=== PATIENT | female | born 1995 | race Caucasian/White ===

== ENCOUNTER 2017-10-23 16:12 | Outpatient (CLI) | payer OTHER, MEDICAID ==
[2017-10-23 19:32] LABS: ADD UMIC YES; UR ASCORBIC ACID NEGATIVE (NEGATIVE); UR BILIRUBIN (Dip) NEGATIVE (NEGATIVE); UR BLOOD (Dip) 2+ mg/dL (NEGATIVE); UR CLARITY SLIGHTLY CLOUDY (CLEAR); UR COLOR YELLOW (YELLOW); UR GLUCOSE (Dip) NEGATIVE (NEGATIVE); UR KETONES (Dip) NEGATIVE (NEGATIVE); UR LEUKOCYTE ESTERASE (Dip) NEGATIVE Leu/ul (NEGATIVE); UR MUCUS FEW /HPF (NONE SEEN); UR NITRITE (Dip) NEGATIVE (NEGATIVE); UR RBC 3 /HPF (0-5); UR SQUAMOUS EPITHELIAL CELL FEW /HPF (FEW); UR TOTAL PROTEIN (Dip) NEGATIVE (NEGATIVE); UR UROBILINOGEN (Dip) 1+ mg/dL (NEGATIVE); UR WBC 3 /HPF (0-5)
== END 2017-10-23 21:43 | disposition home or self-care (01) ==
LOC: OBT 16:12 → L-D 16:14
DX: O46.92 Antepartum hemorrhage, unspecified, second trimester (principal); Z3A.24 24 weeks gestation of pregnancy
CPT/HCPCS: 76817; 81001; 86900; 86901; 87086

== ENCOUNTER 2017-12-27 11:39 | Outpatient (CLI) | payer OTHER ==
[2017-12-27 12:57] LABS: ADD UMIC NO; UR ASCORBIC ACID 20 mg/dL (NEGATIVE); UR BILIRUBIN (Dip) NEGATIVE (NEGATIVE); UR BLOOD (Dip) NEGATIVE (NEGATIVE); UR CLARITY CLEAR (CLEAR); UR COLOR YELLOW (YELLOW); UR GLUCOSE (Dip) NEGATIVE (NEGATIVE); UR KETONES (Dip) NEGATIVE (NEGATIVE); UR LEUKOCYTE ESTERASE (Dip) NEGATIVE Leu/ul (NEGATIVE); UR NITRITE (Dip) NEGATIVE (NEGATIVE); UR SPECIFIC GRAVITY (Dip) 1.019 (1.003-1.030); UR TOTAL PROTEIN (Dip) NEGATIVE (NEGATIVE); UR UROBILINOGEN (Dip) NEGATIVE (NEGATIVE)
[2017-12-27 13:33] LABS: ADD MAN DIFF? NO
[2017-12-27 13:35] LABS: ABNORMAL IP MESSAGE 1; BASOPHIL # 0.1 10^3/ul (0.0-0.1); BASOPHILS % 0.5 % (0.0-2.0); EOSINOPHILS # 0.4 10^3/ul (0.0-0.5); EOSINOPHILS % 3.7 % (0.0-7.0); HEMATOCRIT 36.3 % (37.0-47.0); LYMPHOCYTES # 2.6 10^3/ul (0.8-2.9); LYMPHOCYTES % 23.9 % (15.0-51.0); MEAN CORPUSCULAR HEMOGLOBIN 27.5 pg (29.0-33.0); MEAN CORPUSCULAR HGB CONC 33.1 g/dl (32.0-37.0); MEAN CORPUSCULAR VOLUME 83.3 fl (82.0-101.0); MONOCYTE # 0.6 10^3/ul (0.3-0.9); MONOCYTES % 5.6 % (0.0-11.0); NEUTROPHILS % 65.6 % (39.0-77.0); PLATELET COUNT 115 10^3/UL (140-415); RED BLOOD COUNT 4.36 10^6/ul (4.20-5.40); RED CELL DISTRIBUTION WIDTH 14.8 % (11.5-14.5)
[2017-12-27 13:35] LABS: WHITE BLOOD COUNT 10.7 10^3/ul (4.8-10.8)
[2017-12-27 13:37] LABS: POSITIVE DIFF @See below
[2017-12-27 13:52] LABS: INR 0.92; PROTIME 12.4 Sec (11.9-14.9)
[2017-12-27 13:53] LABS: ALANINE AMINOTRANSFERASE 28 IU/L (13-69); ALKALINE PHOSPHATASE 128 IU/L (42-121); ANION GAP 15 (8-16); ASPARTATE AMINO TRANSFERASE 40 IU/L (15-46); BILIRUBIN,INDIRECT 0.1 mg/dl (0-1.1); BLOOD UREA NITROGEN 8 mg/dl (7-20); CALCIUM 9.7 mg/dl (8.4-10.2); CARBON DIOXIDE 19 mmol/L (21-31); CHLORIDE 109 mmol/L (97-110); CREATININE 0.56 mg/dl (0.44-1.00); GLUCOSE 95 mg/dl (70-220); PARTIAL THROMBOPLASTIN TIME 25.8 Sec (25.0-35.0); POTASSIUM 3.9 mmol/L (3.5-5.1); SODIUM 139 mmol/L (135-144); URIC ACID 5.6 mg/dl (3.1-7.9)
[2017-12-27 13:54] LABS: ALBUMIN 3.7 g/dl (3.3-4.9); ALBUMIN/GLOBULIN RATIO 1.05; BILIRUBIN,TOTAL 0.1 mg/dl (0.2-1.3); TOTAL PROTEIN 7.2 g/dl (6.1-8.1)
== END 2017-12-27 15:24 | disposition home or self-care (01) ==
LOC: OBT 11:39 → L-D 11:39 → OBT 15:24
DX: O13.3 Gestational [pregnancy-induced] hypertension without significant proteinuria, third trimester (principal); Z3A.34 34 weeks gestation of pregnancy
CPT/HCPCS: 76818; 80053; 81003; 84560; 85025; 85384; 85610; 85730

== ENCOUNTER 2017-12-30 09:47 | Outpatient (CLI) | payer OTHER | END 2017-12-30 11:30 | disposition home or self-care (01) | LOC: OBT 09:47 → L-D 09:47 → OBT 11:30 | DX: O16.3 Unspecified maternal hypertension, third trimester (principal); Z3A.34 34 weeks gestation of pregnancy | CPT/HCPCS: 76818 ==

== ENCOUNTER 2018-01-31 17:52 | Inpatient (IN) | payer OTHER ==
[2018-01-31] MEDS: LACTATED RINGER'S 1,000 ML IV (21:44)
[2018-01-31] MEDS ORDERED: METHYLERGONOVINE 0.2 MG INJ IM (22:00)
[2018-01-31] MEDS ORDERED: MISOPROSTOL 200 MCG TAB PR (22:00)
[2018-01-31] MEDS ORDERED: OXYTOCIN 30 UNITS/LR 500 ML IV (22:00)
[2018-01-31] MEDS ORDERED: CARBOPROST 250 MCG INJ IM (22:00)
[2018-01-31 22:50] LABS: ADD MAN DIFF? NO
[2018-01-31 22:54] LABS: ABNORMAL IP MESSAGE 1; BASOPHILS % 0.3 % (0.0-2.0); EOSINOPHILS # 0.3 10^3/ul (0.0-0.5); EOSINOPHILS % 3.1 % (0.0-7.0); HEMATOCRIT 33.5 % (37.0-47.0); HEMOGLOBIN 11.3 g/dl (12.0-16.0); LYMPHOCYTES # 2.6 10^3/ul (0.8-2.9); LYMPHOCYTES % 26.2 % (15.0-51.0); MEAN CORPUSCULAR HEMOGLOBIN 28.2 pg (29.0-33.0); MEAN CORPUSCULAR HGB CONC 33.7 g/dl (32.0-37.0); MEAN CORPUSCULAR VOLUME 83.5 fl (82.0-101.0); MONOCYTE # 0.6 10^3/ul (0.3-0.9); MONOCYTES % 6.3 % (0.0-11.0); NEUTROPHIL # 6.4 10^3/ul (1.6-7.5); NEUTROPHILS % 63.6 % (39.0-77.0); PLATELET COUNT 98 10^3/UL (140-415); RED BLOOD COUNT 4.01 10^6/ul (4.20-5.40); RED CELL DISTRIBUTION WIDTH 15.7 % (11.5-14.5)
[2018-01-31 22:56] LABS: POSITIVE DIFF @See below
[2018-01-31 23:17] LABS: INR 0.97
[2018-01-31 23:18] LABS: PARTIAL THROMBOPLASTIN TIME 27.7 Sec (25.0-35.0)
[2018-01-31 23:40] LABS: HEPATITIS B SURFACE ANTIGEN NEGATIVE (NEGATIVE)
[2018-02-01] MEDS: LACTATED RINGER'S 1,000 ML IV ×4 (08:10→22:03)
[2018-02-01] MEDS: CEFAZOLIN 3 GM in DEXTROSE 5% 100 ML IV (10:00)
[2018-02-01] MEDS: CITRIC ACID/SODIUM CITRATE 15 ML CUP PO (14:28)
[2018-02-01 15:01] LABS: RAPID PLASMA REAGIN NONREACTIVE (NR)
[2018-02-01] MEDS ORDERED: morphine SULFATE/PF (10 MG/10 ML) INJ (15:19)
[2018-02-01] MEDS ORDERED: OXYTOCIN 30 UNITS/LR 500 ML IV ×2 (15:39→16:00)
[2018-02-01] MEDS ORDERED: DEXTROSE 5%-LR 1,000 ML IV (15:39)
[2018-02-01] MEDS ORDERED: DEXAMETHASONE 4 MG/ML 1 ML INJ (15:45)
[2018-02-01] MEDS ORDERED: METHYLERGONOVINE 0.2 MG TAB PO (16:00)
[2018-02-01] MEDS ORDERED: CARBOPROST 250 MCG INJ IM (16:00)
[2018-02-01] MEDS: OXYCODONE/ACETAMINOPHEN (5/325) TAB PO (16:00)
[2018-02-01] MEDS ORDERED: METHYLERGONOVINE 0.2 MG INJ IM (16:00)
[2018-02-01] MEDS ORDERED: MISOPROSTOL 200 MCG TAB PR (16:00)
[2018-02-01] MEDS ORDERED: ONDANSETRON 4 MG INJ (16:25)
[2018-02-01] MEDS ORDERED: morphine 2 MG INJ IV ×2 (17:00)
[2018-02-01] MEDS ORDERED: KETOROLAC 30 MG INJ IV (17:00)
[2018-02-01] MEDS ORDERED: ZOLPIDEM 5 MG TAB PO (17:00)
[2018-02-01] MEDS ORDERED: NALOXONE (0.4 MG/ML) INJ IV (17:00)
[2018-02-01] MEDS ORDERED: ONDANSETRON 4 MG INJ IV (17:00)
[2018-02-01] MEDS ORDERED: DIPHENHYDRAMINE 50 MG INJ IV (17:00)
[2018-02-01] MEDS: OXYTOCIN 30 UNITS/LR 500 ML IV (17:27)
[2018-02-01] MEDS: SENNA/DOCUSATE NA (8.6MG/50MG) TAB PO (22:01)
[2018-02-01] MEDS: LANOLIN 7 GM TUBE TOP (22:01)
[2018-02-02] MEDS: CEFAZOLIN 1 GM/50 ML (PMX) 50 ML IVPB ×5 (00:36→23:12)
[2018-02-02] MEDS: OXYCODONE/ACETAMINOPHEN (5/325) TAB PO ×4 (08:00→23:06)
[2018-02-02 08:06] LABS: ADD MAN DIFF? NO
[2018-02-02 08:10] LABS: WHITE BLOOD COUNT 13.1 10^3/ul (4.8-10.8)
[2018-02-02 08:10] LABS: ABNORMAL IP MESSAGE 1; BASOPHILS % 0.2 % (0.0-2.0); EOSINOPHILS % 0.3 % (0.0-7.0); HEMATOCRIT 29.4 % (37.0-47.0); HEMOGLOBIN 9.7 g/dl (12.0-16.0); LYMPHOCYTES # 2.8 10^3/ul (0.8-2.9); LYMPHOCYTES % 21.1 % (15.0-51.0); MEAN CORPUSCULAR HEMOGLOBIN 27.6 pg (29.0-33.0); MEAN CORPUSCULAR VOLUME 83.8 fl (82.0-101.0); MONOCYTE # 0.9 10^3/ul (0.3-0.9); MONOCYTES % 7.1 % (0.0-11.0); NEUTROPHIL # 9.2 10^3/ul (1.6-7.5); NEUTROPHILS % 70.7 % (39.0-77.0); RED BLOOD COUNT 3.51 10^6/ul (4.20-5.40); RED CELL DISTRIBUTION WIDTH 15.8 % (11.5-14.5)
[2018-02-02] MEDS: LACTATED RINGER'S 1,000 ML IV ×2 (08:26→17:21)
[2018-02-02 08:34] LABS: PLATELET COUNT 84 10^3/UL (140-415); POSITIVE DIFF @See below
[2018-02-02] MEDS: SENNA/DOCUSATE NA (8.6MG/50MG) TAB PO ×2 (10:15→21:50)
[2018-02-02] MEDS: IBUPROFEN 800 MG TAB PO ×2 (16:09→21:50)
[2018-02-03] MEDS: LACTATED RINGER'S 1,000 ML IV ×3 (05:44→21:44)
[2018-02-03] MEDS: IBUPROFEN 800 MG TAB PO ×3 (05:59→21:42)
[2018-02-03] MEDS: CEFAZOLIN 1 GM/50 ML (PMX) 50 ML IVPB ×3 (05:59→18:03)
[2018-02-03] MEDS: OXYCODONE/ACETAMINOPHEN (5/325) TAB PO ×4 (08:00→23:16)
[2018-02-03] MEDS: SENNA/DOCUSATE NA (8.6MG/50MG) TAB PO ×2 (09:19→21:41)
[2018-02-03] MEDS: LABETALOL 100 MG TAB PO (21:42)
[2018-02-04 02:36] LABS: ADD UMIC YES; UR ASCORBIC ACID NEGATIVE (NEGATIVE); UR BILIRUBIN (Dip) NEGATIVE (NEGATIVE); UR BLOOD (Dip) 3+ mg/dL (NEGATIVE); UR CLARITY CLEAR (CLEAR); UR COLOR YELLOW (YELLOW); UR GLUCOSE (Dip) NEGATIVE (NEGATIVE); UR KETONES (Dip) NEGATIVE (NEGATIVE); UR LEUKOCYTE ESTERASE (Dip) NEGATIVE Leu/ul (NEGATIVE); UR NITRITE (Dip) NEGATIVE (NEGATIVE); UR RBC > 182 /HPF (0-5); UR SPECIFIC GRAVITY (Dip) 1.015 (1.003-1.030); UR SQUAMOUS EPITHELIAL CELL FEW /HPF (FEW); UR TOTAL PROTEIN (Dip) NEGATIVE (NEGATIVE); UR UROBILINOGEN (Dip) NEGATIVE (NEGATIVE); UR WBC 0 /HPF (0-5)
[2018-02-04] MEDS: IBUPROFEN 800 MG TAB PO ×2 (05:40→13:22)
[2018-02-04] MEDS: LACTATED RINGER'S 1,000 ML IV ×2 (05:44→13:44)
[2018-02-04] MEDS: OXYCODONE/ACETAMINOPHEN (5/325) TAB PO ×4 (05:54→18:16)
[2018-02-04] MEDS: SENNA/DOCUSATE NA (8.6MG/50MG) TAB PO ×2 (08:43→21:00)
[2018-02-04] MEDS: LABETALOL 100 MG TAB PO ×2 (09:00→21:00)
[2018-02-04] MEDS ORDERED: MEASLES,MUMPS,RUBELLA VACCINE INJ SC* (09:00)
[2018-02-04 09:49] LABS: ADD MAN DIFF? NO
[2018-02-04 09:55] LABS: ABNORMAL IP MESSAGE 1; BASOPHILS % 0.4 % (0.0-2.0); EOSINOPHILS # 0.3 10^3/ul (0.0-0.5); EOSINOPHILS % 3.5 % (0.0-7.0); HEMATOCRIT 27.9 % (37.0-47.0); HEMOGLOBIN 9.4 g/dl (12.0-16.0); LYMPHOCYTES # 2.4 10^3/ul (0.8-2.9); LYMPHOCYTES % 28.4 % (15.0-51.0); MEAN CORPUSCULAR HEMOGLOBIN 28.4 pg (29.0-33.0); MEAN CORPUSCULAR HGB CONC 33.7 g/dl (32.0-37.0); MEAN CORPUSCULAR VOLUME 84.3 fl (82.0-101.0); MONOCYTE # 0.5 10^3/ul (0.3-0.9); MONOCYTES % 6.3 % (0.0-11.0); NEUTROPHIL # 5.1 10^3/ul (1.6-7.5); NEUTROPHILS % 60.5 % (39.0-77.0); PLATELET COUNT 89 10^3/UL (140-415); RED BLOOD COUNT 3.31 10^6/ul (4.20-5.40); RED CELL DISTRIBUTION WIDTH 16.3 % (11.5-14.5)
[2018-02-04 09:55] LABS: WHITE BLOOD COUNT 8.5 10^3/ul (4.8-10.8)
[2018-02-04 10:00] LABS: POSITIVE DIFF @See below
[2018-02-04] MEDS: DIPHTH/TET/ACEL PERTUSS (ADULT) 0.5 ML VIAL IM* (18:21)
== END 2018-02-04 21:50 | disposition home or self-care (01) | DRG 765 ==
LOC: L-D 17:52 → PP1 02-01 20:40
PROVIDERS: Obstetrics & Gynecology
PROC: 10D00Z1 Extraction of Products of Conception, Low, Open Approach (ICD-10-PCS; principal; 2018-02-01 12:30)
PROC: 3E033VJ Introduction of Other Hormone into Peripheral Vein, Percutaneous Approach (ICD-10-PCS; 2018-02-01 12:30)
DX: O16.4 Unspecified maternal hypertension, complicating childbirth (principal); Z68.43 Body mass index [BMI] 50.0-59.9, adult; O99.12 Other diseases of the blood and blood-forming organs and certain disorders involving the immune mechanism complicating childbirth; O41.03X0 Oligohydramnios, third trimester, not applicable or unspecified; O99.214 Obesity complicating childbirth; E66.01 Morbid (severe) obesity due to excess calories; O99.02 Anemia complicating childbirth; Z3A.39 39 weeks gestation of pregnancy; Z37.0 Single live birth
CPT/HCPCS: 76818; 81001; 85025; 85610; 85730; 86592; 86850; 86900; 86901; 87086; 87340; 94760; 99464

== ENCOUNTER 2018-03-12 01:30 | Emergency (ER) | payer OTHER ==
[2018-03-12 03:28] LABS: ADD MAN DIFF? NO
[2018-03-12 03:31] LABS: ABNORMAL IP MESSAGE 1; BASOPHILS % 0.3 % (0.0-2.0); EOSINOPHILS # 0.3 10^3/ul (0.0-0.5); EOSINOPHILS % 3.8 % (0.0-7.0); HEMATOCRIT 35.1 % (37.0-47.0); HEMOGLOBIN 11.4 g/dl (12.0-16.0); LYMPHOCYTES # 1.5 10^3/ul (0.8-2.9); LYMPHOCYTES % 21.4 % (15.0-51.0); MEAN CORPUSCULAR HEMOGLOBIN 27.1 pg (29.0-33.0); MEAN CORPUSCULAR HGB CONC 32.5 g/dl (32.0-37.0); MEAN CORPUSCULAR VOLUME 83.6 fl (82.0-101.0); MONOCYTE # 0.5 10^3/ul (0.3-0.9); MONOCYTES % 7.5 % (0.0-11.0); NEUTROPHIL # 4.7 10^3/ul (1.6-7.5); NEUTROPHILS % 66.7 % (39.0-77.0); PLATELET COUNT 161 10^3/UL (140-415); RED CELL DISTRIBUTION WIDTH 14.6 % (11.5-14.5)
[2018-03-12 03:31] LABS: WHITE BLOOD COUNT 7.1 10^3/ul (4.8-10.8)
[2018-03-12] MEDS: SOD CHLORIDE 0.9% 1,000 ML IV ×2 (03:39→07:10)
[2018-03-12] MEDS: morphine 2 MG INJ IV (03:39)
[2018-03-12 03:40] LABS: POSITIVE DIFF @See below
[2018-03-12] MEDS: ONDANSETRON 4 MG INJ IV (03:40)
[2018-03-12 04:02] LABS: ALANINE AMINOTRANSFERASE 207 IU/L (13-69); ALBUMIN 4.1 g/dl (3.3-4.9); ALKALINE PHOSPHATASE 172 IU/L (42-121); ANION GAP 19 (8-16); ASPARTATE AMINO TRANSFERASE 366 IU/L (15-46); BILIRUBIN,INDIRECT 0.8 mg/dl (0-1.1); BLOOD UREA NITROGEN 7 mg/dl (7-20); CALCIUM 8.9 mg/dl (8.4-10.2); CARBON DIOXIDE 26 mmol/L (21-31); CHLORIDE 105 mmol/L (97-110); CREATININE 0.79 mg/dl (0.44-1.00); GLUCOSE 135 mg/dl (70-220); LIPASE 132 U/L (23-300); POTASSIUM 3.3 mmol/L (3.5-5.1); SODIUM 147 mmol/L (135-144); TOTAL PROTEIN 7.8 g/dl (6.1-8.1)
[2018-03-12 04:16] LABS: UR MUCUS MANY /HPF (NONE SEEN); UR RBC 1 /HPF (0-5); UR SQUAMOUS EPITHELIAL CELL FEW /HPF (FEW); UR WBC 6 /HPF (0-5)
[2018-03-12 04:18] LABS: ADD UMIC YES
[2018-03-12 04:19] LABS: UR COLOR AMBER (YELLOW); UR TOTAL PROTEIN (Dip) 1+ mg/dl (NEGATIVE)
[2018-03-12 04:20] LABS: UR BILIRUBIN (Dip) 2+ mg/dL (NEGATIVE); UR BLOOD (Dip) NEGATIVE (NEGATIVE); UR KETONES (Dip) NEGATIVE (NEGATIVE); UR NITRITE (Dip) NEGATIVE (NEGATIVE); UR UROBILINOGEN (Dip) NEGATIVE (NEGATIVE)
[2018-03-12 04:21] LABS: UR LEUKOCYTE ESTERASE (Dip) NEGATIVE Leu/ul (NEGATIVE)
[2018-03-12 04:22] LABS: UR GLUCOSE (Dip) NEGATIVE (NEGATIVE)
[2018-03-12] MEDS ORDERED: SOD CHLORIDE 0.9% IV (06:30)
[2018-03-12] MEDS ORDERED: HYDROCODONE/APAP (5/325) TAB PO (06:30)
[2018-03-12] MEDS ORDERED: NACL 0.9% 3 ML SYG IV (06:30)
[2018-03-12] MEDS ORDERED: BISACODYL (EC) 5 MG TAB PO (06:30)
[2018-03-12] MEDS ORDERED: ZOLPIDEM 5 MG TAB PO (06:30)
[2018-03-12] MEDS ORDERED: HYDROmorphONE 0.5 MG/0.5 ML SYG IV (06:30)
[2018-03-12] MEDS ORDERED: ONDANSETRON 4 MG INJ IV ×2 (06:30)
[2018-03-12] MEDS ORDERED: DOCUSATE SODIUM 100 MG CAP PO (06:30)
[2018-03-12] MEDS ORDERED: ACETAMINOPHEN 325 MG TAB PO ×2 (06:30)
[2018-03-12] MEDS ORDERED: POTASSIUM CHLORIDE 50 ML IVPB (07:00)
[2018-03-12] MEDS: PIPER-TAZO 3.375 GM IV (PMX) 50 ML IVPB (07:25)
[2018-03-12 08:01] LABS: INR 1.08; PROTIME 14.1 Sec (11.9-14.9); PT RATIO 1.1
[2018-03-12 08:02] LABS: PARTIAL THROMBOPLASTIN TIME 29.8 Sec (25.0-35.0)
[2018-03-13] MEDS ORDERED: PANTOPRAZOLE 40 MG INJ IV (06:00)
== END 2018-03-12 08:48 | disposition short-term general hospital (02) ==
LOC: E/R 01:30
DX: K80.00 Calculus of gallbladder with acute cholecystitis without obstruction (principal)
CPT/HCPCS: 36415; 74176; 80053; 81001; 81025; 83605; 83690; 85025; 85610; 85730; 87040; 87086; 96374; 96375; 99285-25

== ENCOUNTER 2018-10-29 21:00 | Outpatient (CLI) | payer OTHER ==
[2018-10-29] MEDS: AL HYDROX/MG HYDROX/SIMETH 30 ML CUP PO (22:36)
[2018-10-29] MEDS: ACETAMINOPHEN 500 MG TAB PO (22:37)
[2018-10-29 23:23] LABS: ADD MAN DIFF? NO
[2018-10-29 23:24] LABS: ABNORMAL IP MESSAGE 1; BASOPHIL # 0.1 10^3/ul (0.0-0.1); BASOPHILS % 0.4 % (0.0-2.0); EOSINOPHILS # 0.5 10^3/ul (0.0-0.5); EOSINOPHILS % 3.4 % (0.0-7.0); HEMATOCRIT 34.2 % (37.0-47.0); LYMPHOCYTES # 2.5 10^3/ul (0.8-2.9); LYMPHOCYTES % 17.6 % (15.0-51.0); MEAN CORPUSCULAR HEMOGLOBIN 27.2 pg (29.0-33.0); MEAN CORPUSCULAR HGB CONC 32.2 g/dl (32.0-37.0); MEAN CORPUSCULAR VOLUME 84.7 fl (82.0-101.0); MEAN PLATELET VOLUME 13.7 fl (7.4-10.4); MONOCYTE # 0.9 10^3/ul (0.3-0.9); MONOCYTES % 6.2 % (0.0-11.0); NEUTROPHIL # 9.9 10^3/ul (1.6-7.5); NEUTROPHILS % 71.1 % (39.0-77.0); PLATELET COUNT 136 10^3/UL (140-415); RED BLOOD COUNT 4.04 10^6/ul (4.20-5.40); RED CELL DISTRIBUTION WIDTH 14.9 % (11.5-14.5)
[2018-10-29 23:25] LABS: POSITIVE DIFF @See below
[2018-10-29] MEDS: FAMOTIDINE 20 MG TAB PO (23:26)
[2018-10-29 23:32] LABS: ADD UMIC NO; UR ASCORBIC ACID NEGATIVE (NEGATIVE); UR BACTERIA FEW /HPF (NONE SEEN); UR BILIRUBIN (Dip) NEGATIVE (NEGATIVE); UR BLOOD (Dip) NEGATIVE (NEGATIVE); UR CLARITY SLIGHTLY CLOUDY (CLEAR); UR COLOR YELLOW (YELLOW); UR GLUCOSE (Dip) NEGATIVE (NEGATIVE); UR KETONES (Dip) NEGATIVE (NEGATIVE); UR LEUKOCYTE ESTERASE (Dip) NEGATIVE Leu/ul (NEGATIVE); UR MUCUS FEW /HPF (NONE SEEN); UR NITRITE (Dip) NEGATIVE (NEGATIVE); UR RBC 1 /HPF (0-5); UR SPECIFIC GRAVITY (Dip) 1.024 (1.003-1.030); UR SQUAMOUS EPITHELIAL CELL MODERATE /HPF (FEW); UR TOTAL PROTEIN (Dip) NEGATIVE (NEGATIVE); UR UROBILINOGEN (Dip) 1+ mg/dL (NEGATIVE); UR WBC 2 /HPF (0-5)
[2018-10-29 23:37] LABS: ALANINE AMINOTRANSFERASE 20 IU/L (13-69); ALBUMIN 3.6 g/dl (3.3-4.9); ALKALINE PHOSPHATASE 85 IU/L (42-121); ANION GAP 11 (5-13); ASPARTATE AMINO TRANSFERASE 54 IU/L (15-46); BILIRUBIN,INDIRECT 0.3 mg/dl (0-1.1); BILIRUBIN,TOTAL 0.3 mg/dl (0.2-1.3); BLOOD UREA NITROGEN 8 mg/dl (7-20); CARBON DIOXIDE 22 mmol/L (21-31); CHLORIDE 104 mmol/L (97-110); CREATININE 0.42 mg/dl (0.44-1.00); Estimated GFR > 60 mL/min (>60); GLUCOSE 100 mg/dl (70-220); POTASSIUM 3.6 mmol/L (3.5-5.1); SODIUM 137 mmol/L (135-144); TOTAL PROTEIN 6.6 g/dl (6.1-8.1); URIC ACID 4.7 mg/dl (3.1-7.9)
[2018-10-29 23:51] LABS: INR 0.96; PROTIME 12.9 Sec (11.9-14.9)
== END 2018-10-30 00:44 | disposition home or self-care (01) ==
LOC: OBT 21:00 → L-D 21:01
DX: O26.892 Other specified pregnancy related conditions, second trimester (principal); R51 Headache; M25.519 Pain in unspecified shoulder; R10.13 Epigastric pain; O99.212 Obesity complicating pregnancy, second trimester; E66.01 Morbid (severe) obesity due to excess calories; Z3A.25 25 weeks gestation of pregnancy
CPT/HCPCS: 36415; 76818; 80053; 81001; 81003; 84560; 85025; 85384; 85610; 85730

== ENCOUNTER 2018-11-06 07:15 | Emergency (ER) | payer OTHER | END 2018-11-06 08:07 | disposition home or self-care (01) | LOC: FTE 08:07 | DX: J06.9 Acute upper respiratory infection, unspecified (principal) | CPT/HCPCS: 99282; Z7502 ==

== ENCOUNTER 2019-01-12 15:42 | Inpatient (IN) | payer OTHER ==
[2019-01-12] MEDS: NIFEdipine 10 MG CAP PO (16:37)
[2019-01-12] MEDS: LACTATED RINGER'S 1,000 ML IV ×3 (16:54→18:13)
[2019-01-12 17:21] LABS: ADD UMIC NO; UR ASCORBIC ACID 40 mg/dL (NEGATIVE); UR BACTERIA FEW /HPF (NONE SEEN); UR BILIRUBIN (Dip) NEGATIVE (NEGATIVE); UR BLOOD (Dip) NEGATIVE (NEGATIVE); UR CLARITY SLIGHTLY CLOUDY (CLEAR); UR COLOR AMBER (YELLOW); UR GLUCOSE (Dip) NEGATIVE (NEGATIVE); UR KETONES (Dip) TRACE mg/dL (NEGATIVE); UR LEUKOCYTE ESTERASE (Dip) NEGATIVE Leu/ul (NEGATIVE); UR MUCUS FEW /HPF (NONE SEEN); UR NITRITE (Dip) NEGATIVE (NEGATIVE); UR RBC 2 /HPF (0-5); UR SPECIFIC GRAVITY (Dip) 1.024 (1.003-1.030); UR SQUAMOUS EPITHELIAL CELL MODERATE /HPF (FEW); UR TOTAL PROTEIN (Dip) NEGATIVE (NEGATIVE); UR UROBILINOGEN (Dip) 1+ mg/dL (NEGATIVE); UR WBC 2 /HPF (0-5)
[2019-01-12 18:26] LABS: ADD MAN DIFF? NO
[2019-01-12 18:30] LABS: PROTIME 12.3 Sec (11.9-14.9)
[2019-01-12] MEDS ORDERED: OXYTOCIN 30 UNITS/LR 500 ML IV (18:30)
[2019-01-12] MEDS ORDERED: CARBOPROST 250 MCG INJ IM (18:30)
[2019-01-12] MEDS ORDERED: MISOPROSTOL 200 MCG TAB PR (18:30)
[2019-01-12] MEDS ORDERED: METHYLERGONOVINE 0.2 MG INJ IM (18:30)
[2019-01-12 18:31] LABS: PARTIAL THROMBOPLASTIN TIME 27.8 Sec (23.0-35.0)
[2019-01-12 18:34] LABS: BASOPHILS % 0.4 % (0.0-2.0); EOSINOPHILS # 0.4 10^3/ul (0.0-0.5); EOSINOPHILS % 3.8 % (0.0-7.0); HEMATOCRIT 35.2 % (37.0-47.0); HEMOGLOBIN 11.2 g/dl (12.0-16.0); LYMPHOCYTES # 1.5 10^3/ul (0.8-2.9); MEAN CORPUSCULAR HEMOGLOBIN 26.6 pg (29.0-33.0); MEAN CORPUSCULAR HGB CONC 31.8 g/dl (32.0-37.0); MEAN CORPUSCULAR VOLUME 83.6 fl (82.0-101.0); MONOCYTE # 0.7 10^3/ul (0.3-0.9); MONOCYTES % 7.5 % (0.0-11.0); NEUTROPHIL # 6.9 10^3/ul (1.6-7.5); NEUTROPHILS % 71.4 % (39.0-77.0); PLATELET COUNT 101 10^3/UL (140-415); RED BLOOD COUNT 4.21 10^6/ul (4.20-5.40); RED CELL DISTRIBUTION WIDTH 15.9 % (11.5-14.5)
[2019-01-12 18:34] LABS: WHITE BLOOD COUNT 9.6 10^3/ul (4.8-10.8)
[2019-01-12 19:04] LABS: HEPATITIS B SURFACE ANTIGEN NEGATIVE (NEGATIVE)
[2019-01-12 19:42] LABS: ALANINE AMINOTRANSFERASE 26 IU/L (13-69); ALBUMIN 3.3 g/dl (3.3-4.9); ALKALINE PHOSPHATASE 208 IU/L (42-121); ANION GAP 12 (5-13); ASPARTATE AMINO TRANSFERASE 47 IU/L (15-46); BLOOD UREA NITROGEN 8 mg/dl (7-20); CALCIUM 9.1 mg/dl (8.4-10.2); CARBON DIOXIDE 21 mmol/L (21-31); CHLORIDE 107 mmol/L (97-110); CREATININE 0.55 mg/dl (0.44-1.00); Estimated GFR > 60 mL/min (>60); GLUCOSE 124 mg/dl (70-220); SODIUM 140 mmol/L (135-144); TOTAL PROTEIN 6.3 g/dl (6.1-8.1)
[2019-01-13] MEDS ORDERED: PHENYLephrine (100 MCG/ML) 10ML SYG (01:37)
[2019-01-13] MEDS ORDERED: OXYTOCIN 10 UNIT INJ (01:38)
[2019-01-13] MEDS ORDERED: morphine SULFATE/PF (10 MG/10 ML) INJ (01:38)
[2019-01-13] MEDS ORDERED: FENTAnyl 50 MCG/ML VIAL ×3 (02:19→02:37)
[2019-01-13] MEDS ORDERED: MEPERIDINE 100 MG INJ (02:24)
[2019-01-13] MEDS ORDERED: DIPHENHYDRAMINE 50 MG INJ ×2 (02:30→07:00)
[2019-01-13] MEDS ORDERED: LABETALOL HCL 20MG INJ ×3 (02:33→07:00)
[2019-01-13] MEDS ORDERED: HYDROmorphONE 1 MG/5 ML IV SYRINGE IV ×3 (03:00)
[2019-01-13] MEDS ORDERED: FENTAnyl 50 MCG/ML VIAL IV ×3 (03:00)
[2019-01-13] MEDS ORDERED: ONDANSETRON 4 MG INJ IV ×2 (03:00)
[2019-01-13] MEDS ORDERED: OXYCODONE/ACETAMINOPHEN (5/325) TAB PO ×2 (03:00)
[2019-01-13] MEDS ORDERED: NALOXONE (0.4 MG/ML) INJ IV (03:00)
[2019-01-13] MEDS ORDERED: LABETALOL HCL 20MG INJ IV (03:00)
[2019-01-13] MEDS ORDERED: ACETAMINOPHEN 500 MG TAB PO (03:00)
[2019-01-13] MEDS ORDERED: NALBUPHINE HCL (10 MG/1 ML) INJ IV (03:00)
[2019-01-13] MEDS ORDERED: EPHEDrine SULFATE 50 MG/5 ML SYG IV (03:00)
[2019-01-13] MEDS ORDERED: MEPERIDINE 25 MG INJ IV (03:00)
[2019-01-13] MEDS ORDERED: METOCLOPRAMIDE 10 MG INJ IV (03:00)
[2019-01-13] MEDS ORDERED: morphine 2 MG INJ IV ×2 (03:00)
[2019-01-13] MEDS ORDERED: DEXAMETHASONE 4 MG/ML 1 ML INJ (03:10)
[2019-01-13] MEDS: OXYTOCIN 30 UNITS/LR 500 ML IV ×2 (03:35→07:35)
[2019-01-13] MEDS: CEFAZOLIN 3 GM in DEXTROSE 5% 100 ML IV (03:54)
[2019-01-13] MEDS: DIPHENHYDRAMINE 50 MG INJ IV ×2 (03:55→03:56)
[2019-01-13] MEDS ORDERED: METHYLERGONOVINE 0.2 MG TAB PO (06:30)
[2019-01-13] MEDS ORDERED: CARBOPROST 250 MCG INJ IM (06:30)
[2019-01-13] MEDS ORDERED: METHYLERGONOVINE 0.2 MG INJ IM (06:30)
[2019-01-13] MEDS ORDERED: LANOLIN HPA 1 PKT TOP (06:30)
[2019-01-13] MEDS ORDERED: OXYTOCIN 30 UNITS/LR 500 ML IV (06:30)
[2019-01-13] MEDS ORDERED: MISOPROSTOL 200 MCG TAB PR (06:30)
[2019-01-13] MEDS ORDERED: ONDANSETRON 4 MG INJ (07:00)
[2019-01-13] MEDS ORDERED: CITRIC ACID/NA CITRATE 30 ML CUP (07:00)
[2019-01-13] MEDS: DEXTROSE 5%-LR 1,000 ML IV ×3 (07:39→22:06)
[2019-01-13] MEDS: SENNA/DOCUSATE NA (8.6MG/50MG) TAB PO ×2 (09:31→21:10)
[2019-01-13 15:02] LABS: RAPID PLASMA REAGIN NONREACTIVE (NR)
[2019-01-13] MEDS: KETOROLAC 30 MG INJ IV (15:29)
[2019-01-13] MEDS: LACTATED RINGER'S 1,000 ML IV (16:53)
[2019-01-13] MEDS: GUAIFENESIN/DM 5ML CUP PO (17:33)
[2019-01-13] MEDS: HYDROmorphONE 0.5 MG/0.5 ML SYG IV (19:46)
[2019-01-13] MEDS ORDERED: ZINC OXIDE 20% 30 GM OINT TOP (21:00)
[2019-01-13] MEDS: ZINC OXIDE 13% (DESITIN) CREAM 2 OZ TUBE TOP (21:10)
[2019-01-13] MEDS: hydrOXYzine HCL 10 MG TAB PO (21:10)
[2019-01-13] MEDS: ACETAMINOPHEN 500 MG TAB PO (22:01)
[2019-01-14] MEDS: HYDROmorphONE 0.5 MG/0.5 ML SYG IV (00:39)
[2019-01-14] MEDS: GUAIFENESIN/DM 5ML CUP PO ×2 (01:04→15:51)
[2019-01-14] MEDS: LACTATED RINGER'S 1,000 ML IV (01:05)
[2019-01-14] MEDS ORDERED: ACETAMINOPHEN 500 MG TAB PO (03:30)
[2019-01-14] MEDS: ACETAMINOPHEN 500 MG TAB PO ×4 (03:50→21:36)
[2019-01-14] MEDS: HYDROCODONE/APAP (5/325) TAB PO (04:52)
[2019-01-14 06:23] LABS: ADD MAN DIFF? NO
[2019-01-14 06:32] LABS: ABNORMAL IP MESSAGE 1; BASOPHIL # 0.1 10^3/ul (0.0-0.1); BASOPHILS % 0.4 % (0.0-2.0); EOSINOPHILS # 0.1 10^3/ul (0.0-0.5); HEMATOCRIT 32.4 % (37.0-47.0); HEMOGLOBIN 10.4 g/dl (12.0-16.0); LYMPHOCYTES # 1.2 10^3/ul (0.8-2.9); LYMPHOCYTES % 9.4 % (15.0-51.0); MEAN CORPUSCULAR HEMOGLOBIN 26.7 pg (29.0-33.0); MEAN CORPUSCULAR HGB CONC 32.1 g/dl (32.0-37.0); MEAN CORPUSCULAR VOLUME 83.3 fl (82.0-101.0); MONOCYTE # 0.9 10^3/ul (0.3-0.9); NEUTROPHIL # 10.2 10^3/ul (1.6-7.5); NEUTROPHILS % 81.1 % (39.0-77.0); PLATELET COUNT 94 10^3/UL (140-415); RED BLOOD COUNT 3.89 10^6/ul (4.20-5.40); RED CELL DISTRIBUTION WIDTH 16.5 % (11.5-14.5)
[2019-01-14 06:32] LABS: WHITE BLOOD COUNT 12.6 10^3/ul (4.8-10.8)
[2019-01-14 06:35] LABS: POSITIVE DIFF @See below
[2019-01-14] MEDS: SENNA/DOCUSATE NA (8.6MG/50MG) TAB PO ×2 (08:28→20:52)
[2019-01-14] MEDS: ZINC OXIDE 13% (DESITIN) CREAM 2 OZ TUBE TOP ×2 (08:28→20:53)
[2019-01-14] MEDS: hydrOXYzine HCL 10 MG TAB PO ×3 (08:28→20:52)
[2019-01-14] MEDS: KETOROLAC 30 MG INJ IV (08:28)
[2019-01-14] MEDS: ENOXAPARIN 30 MG/0.3 ML SYG SC (08:32)
[2019-01-14] MEDS: DEXTROSE 5%-LR 1,000 ML IV ×3 (08:44→22:06)
[2019-01-14] MEDS ORDERED: DIPHTH/TET/ACEL PERTUSS (ADULT) 0.5 ML VIAL IM* (11:00)
[2019-01-14] MEDS ORDERED: HYDROCODONE/APAP (5/325) TAB NGT (11:00)
[2019-01-14] MEDS: HYDROCODONE/APAP (5/325) TAB GTB ×2 (13:42→21:40)
[2019-01-15] MEDS: ACETAMINOPHEN 500 MG TAB PO ×4 (03:33→21:49)
[2019-01-15] MEDS: HYDROCODONE/APAP (5/325) TAB PO ×2 (04:01→10:11)
[2019-01-15] MEDS: GUAIFENESIN/DM 5ML CUP PO ×2 (04:02→13:51)
[2019-01-15] MEDS: HYDROCODONE/APAP (5/325) TAB GTB ×3 (06:00→21:49)
[2019-01-15] MEDS: DEXTROSE 5%-LR 1,000 ML IV ×3 (06:06→22:06)
[2019-01-15] MEDS: SENNA/DOCUSATE NA (8.6MG/50MG) TAB PO ×2 (09:00→21:00)
[2019-01-15] MEDS: hydrOXYzine HCL 10 MG TAB PO ×3 (10:01→21:49)
[2019-01-15] MEDS: ENOXAPARIN 30 MG/0.3 ML SYG SC (10:03)
[2019-01-15] MEDS: ZINC OXIDE 13% (DESITIN) CREAM 2 OZ TUBE TOP ×2 (10:06→21:49)
[2019-01-16] MEDS: IBUPROFEN 800 MG TAB PO ×4 (01:28→22:14)
[2019-01-16] MEDS: ACETAMINOPHEN 500 MG TAB PO ×4 (03:44→21:14)
[2019-01-16] MEDS: DEXTROSE 5%-LR 1,000 ML IV ×3 (06:06→22:06)
[2019-01-16] MEDS: HYDROCODONE/APAP (5/325) TAB GTB ×3 (06:08→22:14)
[2019-01-16] MEDS: MEASLES,MUMPS,RUBELLA VACCINE INJ SC* (09:00)
[2019-01-16] MEDS: SENNA/DOCUSATE NA (8.6MG/50MG) TAB PO ×2 (09:00→21:14)
[2019-01-16] MEDS: ZINC OXIDE 13% (DESITIN) CREAM 2 OZ TUBE TOP ×2 (10:32→21:15)
[2019-01-16] MEDS: hydrOXYzine HCL 10 MG TAB PO ×3 (10:33→21:14)
[2019-01-16] MEDS: DIPHTH/TET/ACEL PERTUSS (ADULT) 0.5 ML VIAL IM* (13:48)
[2019-01-17] MEDS: ACETAMINOPHEN 500 MG TAB PO ×2 (03:28→09:48)
[2019-01-17] MEDS: IBUPROFEN 800 MG TAB PO (05:39)
[2019-01-17] MEDS: HYDROCODONE/APAP (5/325) TAB GTB ×2 (05:39→12:08)
[2019-01-17] MEDS: DEXTROSE 5%-LR 1,000 ML IV (06:17)
[2019-01-17] MEDS: SENNA/DOCUSATE NA (8.6MG/50MG) TAB PO (09:00)
[2019-01-17] MEDS: hydrOXYzine HCL 10 MG TAB PO (09:48)
== END 2019-01-17 12:15 | disposition home or self-care (01) | DRG 786 ==
LOC: OBT 15:42 → L-D 01-13 01:36 → OBT 16:05 → PP1 01-13 06:28 → L-D 16:05
PROC: 10D00Z1 Extraction of Products of Conception, Low, Open Approach (ICD-10-PCS; principal; 2019-01-13 02:00)
DX: O24.429 Gestational diabetes mellitus in childbirth, unspecified control (principal); O60.14X0 Preterm labor third trimester with preterm delivery third trimester, not applicable or unspecified; O34.219 Maternal care for unspecified type scar from previous cesarean delivery; O99.214 Obesity complicating childbirth; O89.4 Spinal and epidural anesthesia-induced headache during the puerperium; Z37.0 Single live birth; Z3A.36 36 weeks gestation of pregnancy
CPT/HCPCS: 36415; 76815; 76818; 80053; 81001; 81003; 82962; 84560; 85025; 85610; 85730; 86592; 86850; 86900; 86901; 87040; 87086; 87340; 90715; 96360; 99464

== ENCOUNTER 2019-02-11 19:37 | Inpatient (IN) | payer OTHER ==
[2019-02-11 21:24] LABS: ADD MAN DIFF? NO
[2019-02-11 21:29] LABS: BASOPHILS % 0.4 % (0.0-2.0); EOSINOPHILS # 0.7 10^3/ul (0.0-0.5); EOSINOPHILS % 7.8 % (0.0-7.0); HEMATOCRIT 38.1 % (37.0-47.0); HEMOGLOBIN 11.6 g/dl (12.0-16.0); LYMPHOCYTES # 2.2 10^3/ul (0.8-2.9); LYMPHOCYTES % 24.3 % (15.0-51.0); MEAN CORPUSCULAR HEMOGLOBIN 25.4 pg (29.0-33.0); MEAN CORPUSCULAR HGB CONC 30.4 g/dl (32.0-37.0); MEAN CORPUSCULAR VOLUME 83.4 fl (82.0-101.0); MEAN PLATELET VOLUME 12.4 fl (7.4-10.4); MONOCYTE # 0.5 10^3/ul (0.3-0.9); MONOCYTES % 5.5 % (0.0-11.0); NEUTROPHIL # 5.5 10^3/ul (1.6-7.5); NEUTROPHILS % 61.6 % (39.0-77.0); PLATELET COUNT 249 10^3/UL (140-415); RED BLOOD COUNT 4.57 10^6/ul (4.20-5.40); RED CELL DISTRIBUTION WIDTH 15.2 % (11.5-14.5)
[2019-02-11] MEDS: ACETAMINOPHEN 325 MG TAB PO (21:43)
[2019-02-11] MEDS: morphine 4 MG/ML VIAL IV (21:43)
[2019-02-11] MEDS: ONDANSETRON 4 MG INJ IV (21:43)
[2019-02-11] MEDS: PIPER-TAZO 3.375 GM IV (PMX) 100 ML IVPB (21:43)
[2019-02-11 21:48] LABS: INR 0.95; PROTIME 12.8 Sec (11.9-14.9)
[2019-02-11] MEDS: SODIUM CHLORIDE 0.9% 1L BAG IV* (21:48)
[2019-02-11 21:49] LABS: PARTIAL THROMBOPLASTIN TIME 28.4 Sec (23.0-35.0)
[2019-02-11 21:51] LABS: ALANINE AMINOTRANSFERASE 50 IU/L (13-69); ALBUMIN 4.3 g/dl (3.3-4.9); ALBUMIN/GLOBULIN RATIO 1.19; ALKALINE PHOSPHATASE 100 IU/L (42-121); ANION GAP 15 (5-13); ASPARTATE AMINO TRANSFERASE 91 IU/L (15-46); BILIRUBIN,INDIRECT 0.2 mg/dl (0-1.1); BILIRUBIN,TOTAL 0.2 mg/dl (0.2-1.3); BLOOD UREA NITROGEN 9 mg/dl (7-20); CALCIUM 9.3 mg/dl (8.4-10.2); CARBON DIOXIDE 24 mmol/L (21-31); CHLORIDE 106 mmol/L (97-110); CREATININE 0.63 mg/dl (0.44-1.00); Estimated GFR > 60 mL/min (>60); GLUCOSE 90 mg/dl (70-220); POTASSIUM 3.8 mmol/L (3.5-5.1); SODIUM 145 mmol/L (135-144); TOTAL PROTEIN 7.9 g/dl (6.1-8.1)
[2019-02-11 21:53] LABS: LACTIC ACID 1.4 mmol/L (0.5-2.0)
[2019-02-11 22:02] LABS: TROPONIN-I < 0.012 ng/ml (0.000-0.120)
[2019-02-11] MEDS ORDERED: ACETAMINOPHEN 325 MG TAB PO (22:30)
[2019-02-11] MEDS ORDERED: ONDANSETRON 4 MG INJ IV (22:30)
[2019-02-11] MEDS ORDERED: ONDANSETRON 4 MG TAB PO (23:00)
[2019-02-11] MEDS ORDERED: HYDROCODONE/APAP (5/325) TAB PO (23:00)
[2019-02-11] MEDS ORDERED: NACL 0.9% 3 ML SYG IV (23:00)
[2019-02-11] MEDS ORDERED: MAGNESIUM HYDROXIDE 30ML CUP PO (23:00)
[2019-02-11] MEDS ORDERED: DOCUSATE SODIUM 100 MG CAP PO (23:00)
[2019-02-11] MEDS ORDERED: ZOLPIDEM 5 MG TAB PO (23:00)
[2019-02-11] MEDS: SOD CHLORIDE 0.9% 100 ML (23:19)
[2019-02-11] MEDS: IOHEXOL 300MG/ML 150 ML BTL (23:20)
[2019-02-11 23:53] LABS: LACTIC ACID 0.9 mmol/L (0.5-2.0)
[2019-02-12] MEDS: NS + KCL 20 MEQ 1,000 ML IV ×2 (01:22→08:50)
[2019-02-12] MEDS: FAMOTIDINE 20 MG TAB PO ×2 (01:22→10:49)
[2019-02-12 01:38] LABS: LACTIC ACID 0.9 mmol/L (0.5-2.0)
[2019-02-12 01:50] LABS: HEMOGLOBIN A1C 5.8 % (0-5.9)
[2019-02-12 05:58] LABS: ADD MAN DIFF? NO
[2019-02-12 06:28] LABS: BASOPHILS % 0.4 % (0.0-2.0); EOSINOPHILS # 0.6 10^3/ul (0.0-0.5); EOSINOPHILS % 8.6 % (0.0-7.0); HEMATOCRIT 34.5 % (37.0-47.0); HEMOGLOBIN 10.6 g/dl (12.0-16.0); LYMPHOCYTES # 2.3 10^3/ul (0.8-2.9); LYMPHOCYTES % 30.7 % (15.0-51.0); MEAN CORPUSCULAR HEMOGLOBIN 25.9 pg (29.0-33.0); MEAN CORPUSCULAR HGB CONC 30.7 g/dl (32.0-37.0); MEAN CORPUSCULAR VOLUME 84.1 fl (82.0-101.0); MEAN PLATELET VOLUME 12.9 fl (7.4-10.4); MONOCYTE # 0.4 10^3/ul (0.3-0.9); NEUTROPHILS % 53.9 % (39.0-77.0); PLATELET COUNT 205 10^3/UL (140-415)
[2019-02-12 06:28] LABS: WHITE BLOOD COUNT 7.3 10^3/ul (4.8-10.8)
[2019-02-12 06:34] LABS: ANION GAP 12 (5-13); BLOOD UREA NITROGEN 8 mg/dl (7-20); CALCIUM 8.5 mg/dl (8.4-10.2); CARBON DIOXIDE 23 mmol/L (21-31); CHLORIDE 109 mmol/L (97-110); CREATININE 0.63 mg/dl (0.44-1.00); Estimated GFR > 60 mL/min (>60); GLUCOSE 82 mg/dl (70-220); SODIUM 144 mmol/L (135-144)
[2019-02-12 06:47] LABS: FREE THYROXINE INDEX (Calc) 2.06 ug/ml (0.65-3.89); T3 UPTAKE 27.5 % (23.5-40.5); T4 (THYROXINE) 7.5 ug/dl (5.5-11.0)
[2019-02-12 07:07] LABS: HEMOGLOBIN A1C 5.9 % (0-5.9)
[2019-02-12] MEDS: ENOXAPARIN 40 MG/0.4 ML SYG SC (08:38)
[2019-02-12 09:19] LABS: ADD UMIC YES; UR ASCORBIC ACID NEGATIVE (NEGATIVE); UR BILIRUBIN (Dip) NEGATIVE (NEGATIVE); UR BLOOD (Dip) 2+ mg/dL (NEGATIVE); UR CLARITY SLIGHTLY CLOUDY (CLEAR); UR COLOR YELLOW (YELLOW); UR GLUCOSE (Dip) NEGATIVE (NEGATIVE); UR KETONES (Dip) NEGATIVE (NEGATIVE); UR LEUKOCYTE ESTERASE (Dip) NEGATIVE Leu/ul (NEGATIVE); UR MUCUS FEW /HPF (NONE SEEN); UR NITRITE (Dip) NEGATIVE (NEGATIVE); UR RBC 3 /HPF (0-5); UR SPECIFIC GRAVITY (Dip) 1.032 (1.003-1.030); UR SQUAMOUS EPITHELIAL CELL FEW /HPF (FEW); UR TOTAL PROTEIN (Dip) NEGATIVE (NEGATIVE); UR UROBILINOGEN (Dip) NEGATIVE (NEGATIVE); UR WBC 4 /HPF (0-5)
[2019-02-12] MEDS: PIPER-TAZO 3.375 GM IV (PMX) 100 ML IVPB (10:48)
== END 2019-02-12 14:09 | disposition home or self-care (01) | DRG 776 ==
LOC: MS3 22:26 → E/R 19:37 → MS3 22:26
PROVIDERS: Internal Medicine
DX: O86.01 Infection of obstetric surgical wound, superficial incisional site (principal); Z68.42 Body mass index [BMI] 45.0-49.9, adult; E66.01 Morbid (severe) obesity due to excess calories
CPT/HCPCS: 36415; 71045; 74177; 80048; 80053; 81001; 83036; 83605; 84436; 84479; 84484; 85025; 85610; 85730; 87040; 87070; 87086; 93005; 96365; 96375; 99291-25

== ENCOUNTER 2019-04-05 22:13 | Emergency (ER) | payer OTHER | END 2019-04-05 23:35 | disposition home or self-care (01) | LOC: FTE 23:35 | DX: O90.0 Disruption of cesarean delivery wound (principal); Z48.01 Encounter for change or removal of surgical wound dressing | CPT/HCPCS: 99283; Z7502 ==